=== PATIENT | male | born 1960 | race Caucasian/White ===

== ENCOUNTER 2016-11-15 09:38 | Inpatient (IN) | payer BC ==
[~2016-11-15] VITALS: Ht 175.3 cm; Wt 89.1 kg
--- NOTE | ~2016-11-15 | HEMODYNAMI ---
PATIENT:SHIRA MCINTOSH MEDICAL RECORD: [id number] : 62 [id number] ADMISSION DATE: 11/15/16 Generatedon:11/15/201612:49 Patient name: SHIRA MCINTOSH Patient #: [id number] : 1960 Date of study: 11/15/2016 Page: Of Hemodynamic Procedure Report Patient Data Patient Demographics Procedure consent was obtained First Name: SHIRA Gender: Male Last Name: ARNALDO : 1960 Middle Initial: A Age: 56 year(s) Patient #: [id number] Race: SSN: [id number] Additional ID: [id number] Contact details Address: [address] [place] [address] State: [place] City: [place] Zip code: [address] Admission Admission Data Admission Date: 11/15/2016 Admission Time: 9:38 Arrival Date: 11/15/2016 Arrival Time: 9:38 Admit Source: Other Insurance Payor: Private Room #: [id number].[id number] health insurance Weight (lbs.): 196.21 Weight (kg.): 89 Lab Results Lab Result Date: 11/15/2016 Lab Result Time: 0:00 Biochemistry Name Units Result Min Max BUN mg/dl 10 --(-*--)-- 7 18 Creatinine mg/dl 1 --(--*-)-- 0.6 1.3 CBC Name Units Result Min Max Hemoglobin g/dl 16.3 --(--*-)-- 13.5 17.5 Procedure Procedure Types Cath Procedure Diagnostic Procedure [facility] w/Coronaries FFR/IVUS Intra-Coronary IVUS Initial Miscellaneous Procedures Moderate Sedation up to 30 minutes Procedure Description Procedure Date Procedure Date: 11/15/2016 Procedure Start Time: 12:27 Procedure End Time: 12:45 Procedure Staff Name Function Mitchell Miranda MD Performing Physician [place] Proctor RT Scrub Meg Ibrahim RN Nurse Jesus Vang RT Damaged Freight Inspector Sarita Lui RT Monitor Indication Angina Procedure Data Cath Procedure Fluoroscopy Diagnostic fluoroscopy Total fluoroscopy Time: 4.1 time: 4.1 min min Diagnostic fluoroscopy Total fluoroscopy dose: 819 dose: 819 mGy mGy Contrast Material Contrast Material Type Amount (ml) Isovue 370 75 Entry Location Entry Primary Successful Side Size Upsize Upsize Entry Closure Succes sful Closure Location (Fr) 1 (Fr) 2 (Fr) Remarks Device Remarks Femoral Right 5 Fr 6 Fr Vascade artery Short Closure System Estimated blood loss: 5 ml Procedure Complications No complications Procedure Medications Medication Administration Route Dosage Oxygen NC 2 l/min Heparin Flush Bag added to field 2 bags (1000units/500ml NS) Lidocaine 2% added to field 20 Benadryl I.V. 50 mg Versed I.V. 1 mg Fentanyl I.V. 50 mcg Versed I.V. 1 mg Fentanyl I.V. 50 mcg Versed I.V. 1 mg Versed I.V. 1 mg Fentanyl I.V. 50 mcg Fentanyl I.V. 50 mcg Hemodynamics Rest HGB: 16.3 (g/dl) Heart Rate: 97 (bpm) Pressure Samples Time Site Value (mmHg) Purpose Heart Use Rate(bpm) 12:29 LV 152/57,59 Snapshot 97 Snapshots Pre Cath Intra NCS Post Cath Vital Signs Time Heart Resp SPO2 NIBP (mmHg) Rhythm Pain Sedation Rate (ipm) (%) Status Level (bpm) 12:07:20 92 16 98 145/96(116) NSR 3 (11) , 10(A) Tolerable 12:11:34 94 21 98 140/93(117) NSR 3 (11) , 10(A) Tolerable 12:15:50 91 17 99 142/91(115) NSR 3 (11) , 10(A) Tolerable 12:20:06 95 15 99 128/92(103) NSR 3 (11) , 10(A) Tolerable 12:24:18 97 18 97 132/87(115) NSR 3 (11) , 10(A) Tolerable 12:28:32 93 13 97 142/84(119) NSR 3 (11) , 10(A) Tolerable 12:32:50 102 19 95 149/82(111) NSR 3 (11) , 9(A) Tolerable 12:37:10 103 17 95 145/93(120) NSR 3 (11) , 9(A) Tolerable 12:41:22 104 15 95 143/91(104) NSR 3 (11) , 9(A) Tolerable 12:45:34 100 20 96 144/89(114) NSR 3 (11) , 10(A) Tolerable Medications Time Medication Route Dose Verified Delivered Reason Notes Effe ctiveness by by 12:10:17 Oxygen NC 2 Mitchell Meg Per l/min Ruben Ibrahim RN physician 12:10:24 Heparin Flush added 2 Mitchell Mitchell used for Bag to bags Ruben Miranda MD procedure (1000units/500ml field NS) 12:10:31 Lidocaine 2% added 20ml Mitchell Mitchell for local to vial Ruben Miranda MD anesthetic field 12:10:37 Benadryl I.V. 50 mg Mitchell Meg Per Ruben Ibrahim RN physician 12:21:17 Versed I.V. 1 mg Mitchell Meg for Ruben Ibrahim RN sedation 12:21:21 Fentanyl I.V. 50 Mitchell Meg for mcg Ruben Ibrahim RN sedation 12:24:44 Fentanyl I.V. 50 Mitchell Meg for mcg Ruben Ibrahim RN sedation 12:24:51 Versed I.V. 1 mg Mitchell Meg for Ruben Ibrahim RN sedation 12:26:39 Versed I.V. 1 mg Mitchell Meg for Ruebn Ibrahim RN sedation 12:26:57 Fentanyl I.V. 50 Mitchell Meg for mcg Ruben Ibrahim RN sedation 12:29:49 Versed I.V. 1 mg Mitchell Meg for Ruben Ibrahim RN sedation 12:29:57 Fentanyl I.V. 50 Mitchell Meg for mcg Ruben Ibrahim RN sedation Procedure Log Time Note 11:52:09 Informed consent obtained and on chart 11:52:15 Diagnostic Cath Status : Elective 11:53:03 Indication : Angina 11:53:09 Jesus Vang RT(R) sent for patient. Start room use. 11:53:10 Time tracking: Regular hours 11:53:14 Plan of Care:Hemodynamics will remain stable., Cardiac rhythm will remain stable., Comfort level will be maintained., Respiratory function will remain adequate., Patient/ family verbilizes understanding of procedure., Procedure tolerated without complication., Recovers from procedure without complications.. 12:01:44 Patient received from Med II to CCL 1 Alert and oriented. Tansferred to table in Supine position. 12:01:45 Warm blankets applied, and gerardo hugger turned on for patient comfort. 12:01:46 Correct patient and procedure confirmed by team. 12:01:47 ECG and BP/O2 sat monitors applied to patient. 12:06:15 Vital chart was started 12:06:21 Baseline sample Acquired. 12:06:25 Rhythm: sinus rhythm 12:06:27 Full Disclosure recording started 12:06:37 H&P Date Dictated: 11/15/2016 Within 30 days and on chart., H&P Addendum completed by physician on day of procedure. (MUST COMPLETE FOR ALL OUTPATIENTS). 12:06:38 Pre-procedure instructions explained to patient. 12:06:39 Pre-op teaching completed and patient verbalized understanding. 12:06:40 Family in waiting room. 12:06:41 Patient NPO since Midnight. 12:06:43 Is the patient allergic to Iodine/contrast media? No. 12:06:44 Is patient on blood thinner?No 12:06:48 ACC The patient was administered the following blood thiners within the last 24 hours: None 12:06:51 Patient diabetic? No. 12:06:54 Previous problem with sedation/anesthesia? No ? 12:06:55 Snore? Yes 12:06:56 Sleep apnea? Yes 12:06:57 Deviated septum? No 12:06:58 Opens mouth fully? Yes 12:06:58 Sticks out tongue? Yes 12:07:00 Airway obstruction? No ? 12:07:04 Dentures? No ? 12:07:07 Pre procedure: right dorsailis pedis pulse 1+ Palpable, but thready & weak; easily obliterated 12:07:57 Unable to go radial due to IV in right wrist. 12:08:03 Patient pain scale 4/10 Physician notified.. 12:08:08 IV patent on arrival in right wrist with 0.9% NaCl at O. 12:08:12 Lab results completed and on chart. 12:08:15 Right groin area was prepped with chlora-prep and draped in sterile fashion 12:08:16 Alarms reviewed by R. N. 12:08:16 Sharps counted by scrub and verified by R.N. 12::31 Use device set Femoral Dx 12:08:41 Tegaderm 4 x 4 opened to sterile field. 12:08:42 Acist Hand Control opened to sterile field. 12:08:42 Acist Manifold opened to sterile field. 12:08:44 Acist Syringe opened to sterile field. 12:08:44 Bag Decanter opened to sterile field. 12:08:44 Cardinal Cath Pack opened to sterile field. 12:08:45 Terumo 5Fr Milo Sheath opened to sterile field. 12:08:45 St Saeid 260cm J .035 wire opened to sterile field. 12:08:46 Cordis Infinity 5Fr Multipack catheter opened to sterile field. 12:10:17 Oxygen 2 l/min NC was given by Meg Ibrahim RN; Per physician; 12:10:24 Heparin Flush Bag (1000units/500ml NS) 2 bags added to field was given by Mitchell Miranda MD; used for procedure; 12::31 Lidocaine 2% 20ml vial added to field was given by Mitchell Miranda MD; for local anesthetic; 12:10:37 Benadryl 50 mg I.V. was given by Meg Ibrahim RN; Per physician; 12:12:11 Patient Weight : 89 lbs 12:12:14 Admit Source: Other 12:12:32 Arrival Date: 11/15/2016 9:38:00 AM 12:12:40 Insurance Payor : Private health insurance 12:13:24 Lab Result : Hemoglobin 16.3 g/dl 12::24 Lab Result : Creatinine 1 mg/dl 12:13:24 Lab Result : BUN 10 mg/dl 12:19:30 Physician arrived 12::30 --------ALL STOP TIME OUT------ 12::31 Final Timeout: patient, procedure, and site verified with staff and physician. All members of the team are in agreement. 12:19:37 Right groin site verified by team. 12:19:40 Physical assessment completed. ASA score P 2 - A patient with mild systemic disease as per Mitchell Miranda MD. 12:19:43 Sedation plan: IV Moderate Sedation Versed, Fentanyl 12::17 Versed 1 mg I.V. was given by Meg Ibrahim RN; for sedation; 12:: Fentanyl 50 mcg I.V. was given by Meg Ibrahim RN; for sedation; 12:24:44 Fentanyl 50 mcg I.V. was given by Meg Ibrahim RN; for sedation; 12::51 Versed 1 mg I.V. was given by Meg Ibrahim RN; for sedation; 12::39 Versed 1 mg I.V. was given by Meg Ibrahim RN; for sedation; 12::57 Fentanyl 50 mcg I.V. was given by Meg Ibrahim RN; for sedation; 12::29 Local anesthetic to right femoral artery with Lidocaine 2% by Mitchell Miranda MD.INITIAL ACCESS ONLY 12:28:28 A 5 Fr sheath was inserted into the Right Femoral artery 12::05 5 Fr pigtail guide catheter was inserted over the wire 12:: LV hemodynamics recorded. 12::32 LV gram done using SPARROW 12::35 Injector settings: Ml/sec: 5, Volume: 15, 12::41 EF : 50 % 12::43 Catheter removed. 12::49 Versed 1 mg I.V. was given by Meg Ibrahim RN; for sedation; 12::51 5 Fr jl 4 guide catheter was inserted over the wire 12::57 Fentanyl 50 mcg I.V. was given by Meg Ibrahim RN; for sedation; 12::07 LCA angiography performed. 12:31:11 Injector settings: Ml/sec: 3, Volume: 6, 12:32:02 Terumo 6Fr Milo Sheath opened to sterile field. 12:32:02 Garcia Whisper J 300cm 0.014 guide wire opened to sterile field. 12:32:03 [email or web address] BasixCompak Inflation Kit opened to sterile field. 12:32:11 Catheter removed. 12:32:19 5 Fr 3drc guide catheter was inserted over the wire 12:33:23 RCA angiography performed. 12:33:27 Injector settings: Ml/sec: 3, Volume: 6, 12:33:40 Catheter removed. 12:33:49 [place] IVUS Catheter opened to sterile field. 12:34:19 Cordis 6FR XBLAD 3.5 guide catheter opened to sterile field. 12:34:27 Sheath upsized to a 6 Fr Short. 12:34:37 6 Fr xblad 3.5 guide catheter was inserted over the wire 12:35:31 Guide Catheter removed. unable to cannulate vessel. 12:35:43 Cordis 6FR XBLAD 4.0 guide catheter opened to sterile field. 12:36:15 6 Fr xblad 4 guide catheter was inserted over the wire 12:36:39 whisper wire advanced. 12:36:41 Wire advanced across lesion. 12:38:37 IVUS catheter advanced over wire. 12:40:51 IVUS pass to LAD lesion performed. 12:40:52 IVUS catheter removed over wire. 12:41:21 Vascade 6/7 Fr Closure Device opened to sterile field. 12:41:28 Wire removed. 12:41:28 Guide catheter removed. 12:41:36 Sheath removed intact; hemostasis achieved with Vascade Closure System to the Right Femoral artery. 12:41:58 Procedure ended.(Physican Out) 12:43:03 Procedure type changed to Cath procedure, Diagnostic procedure, LHC, C w/Coronaries, FFR/IVUS, Intra-Coronary IVUS Initial, Miscellaneous Procedures, Moderate Sedation up to 30 minutes 12:44:48 Procedure and supply charges have been captured, reviewed, submitted and are correct. 12:44:53 Procedure Complication : No complications 12:45:00 Fluoroscopy time 04.10 minutes. 12:45:05 Fluoroscopy dose: 819 mGy 12:45:05 Flurop Dose total: 819 12:45:18 Contrast amount:Isovue 370 75ml. 12:45:20 Sharps counted by scrub and verified by R.N. 12:45:21 Insertion/operative site no bleeding no hematoma. 12:45:23 Post-op/insertion site Right Femoral artery dressed using a 4 x 4 and Tegaderm. 12:45:27 Post right femoral artery:stable 12:45:28 Post Procedure Pulses reassessed and unchanged 12:45:34 Post procedure rhythm: unchanged. 12:45:36 Estimated blood loss: 5 ml 12:45:38 Post procedure instruction explained to patient.Patient verbalizes understanding. 12:45:38 Patient needs reinforcement of post procedure teaching. 12:45:39 Vital chart was stopped 12:45:40 See physician's report for complete and final results. 12:45:42 Report given to Med II. 12:45:44 Patient transfered to Med II with Stretcher. 12:45:48 Procedure ended. 12:45:48 Full Disclosure recording stopped 12:45:55 End room use (Document Last) Device Usage Item Name Manufacture Quantity Catalog Hospital Part Current Minima l Lot# / Number Charge Number Stock Stock Serial# Code Tegaderm 4 1 [id number] 448148 248535 [id number] 5 x 4 Acist Hand Acist 1 89670 758352 214877 862761 5 Control Medical Systems Inc Acist Acist 1 88807 189951 902198 093283 5 Manifold Medical Systems Inc Acist Acist 1 61552 912425 963304 223086 20 Syringe Medical Systems Inc Bag Microtek 1 2002S 691552 15168 284027 5 Decanter Medical Inc. Cardinal Cardinal [address] 122294 27274 447568 5 Cath Pack Health Terumo 5Fr Terumo 1 [id number] 136951 467085 302641 [address] Saeid St Saeid 1 941953 059031 137553 610087 30 260cm J .035 wire Cordis Cardinal 1 [id number] 420759 88053 431477 30 Infinity Health 5Fr Multipack catheter Terumo 6Fr Terumo 1 MVN695 472142 981726 260131 40 Milo Sheath Garcia Garcia 1 [id number] 788807 790578 416106 5 Whisper J Vascular 300cm 0.014 guide wire Merit Merit 1 [id number] 553606 394429 037928 15 [employer] Medical Inflation Kit [place] 1 [id number] 338746 773792 216513 8 [place] IVUS Catheter Cordis 6FR Cardinal 1 [id number] 429859 096810 701746 10 XBLAD 3.5 Health guide catheter Cordis 6FR Cardinal 1 [id number] 708486 375076 952329 3 XBLAD 4.0 Health guide catheter Vascade 6/7 Cardiva 1 [id number] 688065 797973 616458 5 Fr Closure Medical, Device Inc. Signature Audit [place] Stage Time Signature Unsigned Intra-Procedure 11/15/2016 Sarita Lui 12:49:47 PM RT(R) Signatures Monitor : Sarita Lui RT Signature : Date : Time : [id number] [place] [address]
--- NOTE | 2016-11-15 09:52 | NUR ---
TRANSFER FROM ADMISSIONS BY W/C. OREINTED TO ROOM. CALL LIGHT IN REACH. WILL CONT. PLAN OF CARE.
[2016-11-15 10:13] VITALS: BP 148/98; Ht 175.3 cm; Wt 89.1 kg
[2016-11-15] MEDS ORDERED: NORVASC5 MG PO (10:32)
[2016-11-15] MEDS ORDERED: LIPITOR40 MG PO (10:33)
[2016-11-15] MEDS ORDERED: EFFEXOR XR75 MG PO (10:34)
[2016-11-15 10:46] LABS: BASOPHILS 0.3 % (0.0-2.0); EOSINOPHILS 0.5 % (0-7); HEMATOCRIT 47.4 % (42.0-54.0); HEMOGLOBIN 16.3 g/dL (13.5-17.5); IMMATURE GRANULOCYTES 0.3 % (0-5); LYMPHOCYTES 22.2 % (15-50); MCH 32.2 pg (26.0-34.0); MCHC 34.4 g/dL (31.0-37.0); MCV 93.7 fL (80.0-100.0); MEAN PLATELET VOLUME 9.7 fL (7.4-10.4); MONOCYTES 10.6 % (2-11); NEUTROPHILS 66.1 % (40-80); PLATELET COUNT 182 10x3/uL (130-400); RBC 5.06 10x6/uL (4.20-6.10); RDW 13.2 % (11.5-14.5); WBC 7.3 10x3/uL (4.8-10.8)
--- NOTE | 2016-11-15 11:01 | NUR ---
IV STARTED TO RITH HAND WITH 22 GAUGE CATH AND FLUSHED WITH NS. MORPHINE 2 MG GIVEN FOR C/P NOT RELIEVED BY ALEJANDRINA. B/P DROPPED TO 92/62. WILL CONT. TO MONITOR.
[2016-11-15 11:10] LABS: CALC OSMOLALITY 267 mosm/kg (275-300); CALCIUM 9.3 mg/dL (8.5-10.1); CARBON DIOXIDE 26.1 mmol/L (21.0-32.0); CHLORIDE - SERUM 101 mmol/L (98-107); CREATINE KINASE 168 UL (21-232); GLUCOSE 113 mg/dL (74-106); POTASSIUM - SERUM 3.6 mmol/L (3.5-5.1); SODIUM 134 mmol/L (136-145); TROPONIN-I < 0.017 ng/mL (0.000-0.060); UREA NITROGEN 10 mg/dL (7-18); eGFR NON AFRICAN AMERICAN 82 mL/min (90-120)
[2016-11-15 11:50] VITALS: BP 92/62
--- NOTE | 2016-11-15 13:00 | NUR ---
BACK FROM GLOVE SEWER. VWS WNL. RIGHT GROIN STABLE WITHOUT BLEEDING OR HEMATOMA NOTED. WILL MONITOR.
--- NOTE | 2016-11-15 15:00 | NUR ---
BED REST UP. GROIN STABLE.
[2016-11-15 15:28] VITALS: BP 136/93
--- NOTE | 2016-11-15 15:45 | NUR ---
02 SATS 92% ON RA AFTER AMBULATING. STATES SOB AND C/P ALOT BETTER. GROIN STABLE.
--- NOTE | 2016-11-15 16:05 | NUR ---
IV AND TELEMTRY DCD. DC PLANS GIVEN. UNDERSTANDING VOICED. ESCORTED TO CAR BY W/C.
--- NOTE | 2016-11-17 11:12 | CN ---
PATIENT NAME:SHIRA MCINTOSH MEDICAL RECORD: [id number] : 62 LOCATION:. D.2118 ADMIT DATE: 11/15/16 ACCOUNT: [id number] CONSULTING PHYSICIAN: SARAY AFYE MD REFERRING PHYSICIAN: ALISSA MCKAY MD DATE OF CONSULTATION: 11/15/2016 Cardiology Consultation DIAGNOSES: 1. Chest pain compatible with angina. 2. Abnormal electrocardiogram. 3. Hypertension. 4. Hyperlipidemia. HISTORY OF PRESENT ILLNESS: This is a gentleman with no previous cardiac history, no previous cardiac workup, who presents with anginal symptomatology all night, started last night at approximately 9:00, he continues to have chest pain. His EKG has T-wave inversions inferiorly. His troponin is normal. PHYSICAL EXAMINATION: GENERAL APPEARANCE: Well-nourished, well-developed, appears stated age. Level of distress, comfortable. PSYCHIATRIC: Mental status, alert, normal affect. Orientation, oriented to time, place and person. EYES: Lids and conjunctiva, noninjected. No discharge, no pallor. ENT: Lips, teeth, gums, normal dentition. Oropharynx, no cyanosis, no pallor. NECK: Carotid arteries, bilateral normal upstroke, no bruits, no thrills. JUGULAR VEINS: No jugular venous pressure or distention. CERVICAL LYMPH NODES: Nontender, nonenlarged. THYROID: Not enlarged. Nontender. No nodules. LUNGS: Respiratory effort, unlabored. CHEST: Normal curvature. No thoracic deformity. No chest wall tenderness. Percussion, resonant. Auscultation, clear. No wheezes, no rales, no rhonchi. CARDIOVASCULAR: Precordial exam, nondisplaced. No heaves or pericardial thrills. Rate and rhythm, regular. Heart sounds, normal S1, normal S2. No S3, no gallop, no rub. Systolic murmur, not heard. Diastolic murmur, not heard. EXTREMITIES: No cyanosis, no edema. Peripheral pulses, full and equal in all extremities, except as noted. No bruits appreciated. ABDOMEN: Soft, nondistended. Normal aorta. No bruit. Nontender. No masses. Liver, nontender, no hepatomegaly. Spleen, nontender, no splenomegaly. MUSCULOSKELETAL: No joint tenderness. No joint swelling. No erythema. NEUROLOGICAL: Normal gait, normal strength, normal tone. SKIN: Warm and dry. OVERALL IMPRESSION: Chest pain compatible with angina with abnormal ECG and a rapidly progressive unstable fashion, most likely is hemodynamically significant coronary artery disease. We will proceed with coronary angiography. Further care depends upon findings of the angiography. TRANSINT:[id number] Voice Confirmation ID: [id number] DOCUMENT ID: [id number] CONSULT REPORT [id number] SHIRA MCINTOSH, SARAY DOMINGUEZ at 1112 CC: [id number] DICTATION DATE: 11/15/16 1141 LINE SERVICE TECHNICIAN: 11/15/16 1550 DIS IN 11/15/16 [facility] [address] [place] [address]
--- NOTE | 2016-11-17 11:12 | OP ---
PATIENT NAME: SHIRA MCINTOSH MEDICAL RECORD: [id number] :62 LOCATION:D.M2 D.2118 ADMISSION DATE:11/15/16 SURGEON: SARAY FAYE MD DATE OF OPERATION: 11/15/2016 PROCEDURES: 1. Left heart catheterization. 2. Selective coronary angiography. 3. Left ventriculogram. INDICATION: 1. Chest pain compatible with angina. 2. Intravascular ultrasound of the LAD. PROCEDURE IN DETAIL: After informed consent was obtained and after a detailed explanation of the risks, benefits as well as alternative therapies, the patient elected to proceed with angiogram and heart catheterization. The right femoral area was prepped and draped in normal sterile fashion. Right femoral artery was cannulated via modified Seldinger technique with placement of 6-Korean sheath. All catheters exchanged through this sheath. FINDINGS: Left ventriculogram was performed in the standard 30-degree SPARROW view, reveals good cardiac wall motion throughout all segments. Overall ejection fraction 55% to 60%. SELECTIVE CORONARY ANGIOGRAPHY: 1. Left main is with no significant angiographic disease. 2. Left circumflex has no significant angiographic disease. 3. Right coronary has no significant angiographic disease. 4. The left anterior descending has hazy irregularities in the mid vessel; however, intravascular ultrasound revealed that this is no greater than 20%. OVERALL IMPRESSION: Minimal coronary artery disease is present. No flow-limiting stenosis. Chest pain is noncardiac in etiology. No other cardiac workup needs to be ascertained at this point. TRANSINT:[id number] Voice Confirmation ID: [id number] DOCUMENT ID: [id number] SARAY FAYE MD at 1112 CC: ALISSA MCKAY MD [id number] DICTATION DATE: 11/15/16 1244 CONFLICT RESOLUTION PROFESSIONAL: 11/15/16 1624 DIS IN 11/15/16 [address] [place] [address]
--- NOTE | 2016-11-28 17:39 | HP ---
PATIENT: SHIRA MCINTOSH MEDICAL RECORD: [id number] ACCOUNT: [id number] LOCATION:[address] : 62 ADMISSION DATE: 11/15/16 HISTORY AND PHYSICAL EXAMINATION DATE OF ADMISSION: 11/15/2016 CHIEF COMPLAINT: Substernal chest pain, shortness of breath. HISTORY OF PRESENT ILLNESS: The patient is a 56-year-old gentleman, who was in normal state of health until sometime yesterday when he developed shortness of breath, and also a pressure in his chest. The patient states he feels as if a massive amount of weight is on his chest. The patient has had some diaphoresis as well as shortness of breath. No radiation of pain. PAST MEDICAL HISTORY: His past history is significant that he has had a history of having hyperlipidemia. He has had hypertension. He has had some erectile dysfunction in the past. The patient has had no surgeries. He does have a history of sleep apnea. FAMILY HISTORY: Mother had history of diabetes mellitus as well as malignant neoplasm, type unknown, and had hypertension. SOCIAL HISTORY: The patient is 4 years college educated. He is and a father of 2. Currently, works at [employer]. He had been a 1 pack per day smoker, quit in 2009. He denies any ethanol use or abuse. ALLERGIES: BIAXIN, OMNICEF, AND TRILIPIX. MEDICATIONS: His medications currently include amlodipine 5 mg, 1 p.o. q.h.s. and Lipitor 40 mg p.o. q. day. Also, the patient had been on testosterone injections in the past. REVIEW OF SYSTEMS: CONSTITUTIONAL: He denies any headaches, seizures, or syncope. Denies change in visual or auditory acuity. PULMONARY: The patient does report having pain with deep inspiration. He has had no sputum production. No hemoptysis. CARDIOVASCULAR: As stated above. GENITOURINARY: No urgency, frequency, or dysuria. PHYSICAL EXAMINATION: GENERAL: The patient is alert and oriented times 3. He is accompanied by his . VITAL SIGNS: Temperature 99, respirations 20, his pulse is 92, his blood pressure is 132/82. His weight is 196. HEENT: Head is normocephalic. No lesions. Ears: TMs clear. Eyes: Pupils equal, round, reactive to light. His extraocular movements intact. Nasal cavity, oral cavity, oropharynx clear. NECK: Supple. There is no adenopathy. HEART: Has regular rhythm. No murmurs, gallops, or rubs. LUNGS: Clear. ABDOMEN: Soft. Bowel sounds positive. He does have some costosternal tenderness. He does have some minimal midepigastric tenderness. HISTORY AND PHYSICAL [id number] SHIRA MCINTOSH DIAGNOSTIC DATA: Chest x-ray today showing possible left lower lobe infiltrate. His EKG showed sinus rhythm, rate is 100, no ST-T wave changes. ASSESSMENT: 1. Acute onset of substernal chest pain, rule out angina. 2. History of hyperlipidemia, hypertension, and history of smoking. PLAN: The patient is admitted. Cardiology consultation will be obtained. He will have cardiac enzymes performed. We will continue to evaluate. TRANSINT:[id number] Voice Confirmation ID: [id number] DOCUMENT ID: [id number] ALISSA MCKAY MD at 1739 CC: [id number] DICTATION DATE: 11/15/16 09 EXTERMINATION SUPERVISOR: 11/15/16 1011 DIS IN 11/15/16 [facility] [address] [place] [id number]
--- NOTE | 2017-02-11 11:23 | DS ---
PATIENT:SHIRA MCINTOSH :62 MEDICAL RECORD: [id number] DISCHARGE SUMMARY ADMISSION DATE: 11/15/16 DISCHARGE DATE: 11/15/16 DATE OF ADMISSION: 11/15/2016 DATE OF DISCHARGE: 11/15/2016 CONDITION ON DISCHARGE: Improved. ADMITTING DIAGNOSES: Substernal chest pain, possible angina, history of hyperlipidemia, hypertension and history of smoking. DISCHARGE DIAGNOSES: Chest pain, unspecified, hypertension, hyperlipidemia and history of smoking. HOSPITAL COURSE: This patient is a 56-year-old gentleman, who presented to the office stating he had developed substernal chest pain on the day prior to his admission. He had had a pressure in the chest. He states that he felt if there was a massive amount of weight on his chest. It was felt the patient's history was significant, he should be admitted. PHYSICAL EXAMINATION: GENERAL: He was alert and oriented times 3. VITAL SIGNS: Temperature 99, respirations 20, his pulse was 92 and his blood pressure 132/82. His weight was 196. HEENT: Unremarkable. NECK: Supple. There is no adenopathy. HEART: Had a regular rate and rhythm without murmurs, gallops or rubs. LUNGS: Clear. DIAGNOSTIC DATA: Chest x-ray showed no cardiomegaly, no active infiltrates. EKG showed normal sinus rhythm, rate is 100, nonspecific ST-T wave changes. The patient was admitted and was seen in consultation by Dr. Miranda, who felt the patient's chest pain was compatible with angina, felt the patient would benefit from coronary arteriogram. The patient did undergo coronary arteriogram, which revealed left main having no significant angiographic disease, left circumflex without any significant disease, right coronary had no angiographic disease, left anterior descending has hazy irregularities in the mid portion, no greater than 20%. Overall, he had minimal arteriosclerotic heart disease. The patient was stable. He was therefore discharged. DISCHARGE MEDICATIONS: Included atorvastatin 40 mg once a day, aspirin 81 mg once a day and Norvasc 5 mg once a day. DISCHARGE INSTRUCTION: The patient was advised to stop smoking. ACTIVITIES: Ad dax. FOLLOWUP: He would follow up with me in approximately 1 week. 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
== END 2016-11-15 16:08 | disposition home or self-care (01) | DRG 287 ==
LOC: D.M2 09:38
PROVIDERS: Internal Medicine Interventional Cardiology; ADMIT Family Medicine
PROC: B2151ZZ Fluoroscopy of Left Heart using Low Osmolar Contrast (ICD-10-PCS; 2016-11-15)
PROC: 4A023N7 Measurement of Cardiac Sampling and Pressure, Left Heart, Percutaneous Approach (ICD-10-PCS; 2016-11-15)
PROC: B240ZZ3 Ultrasonography of Single Coronary Artery, Intravascular (ICD-10-PCS; 2016-11-15)
PROC: B2111ZZ Fluoroscopy of Multiple Coronary Arteries using Low Osmolar Contrast (ICD-10-PCS; principal; 2016-11-15 13:00)
DX: R07.89 Other chest pain (principal); I25.10 Atherosclerotic heart disease of native coronary artery without angina pectoris; I10 Essential (primary) hypertension; E78.5 Hyperlipidemia, unspecified; Z87.891 Personal history of nicotine dependence; R94.31 Abnormal electrocardiogram [ECG] [EKG]

== ENCOUNTER 2017-01-07 14:57 | Emergency (ER) | payer BC ==
[2016-11-15 10:13] VITALS: BMI 29.0
[~2017-01-07 14:57] MED LIST: EFFEXOR XR75 MG PO; LIPITOR40 MG PO; NORVASC5 MG PO
[2017-01-07 15:34] LABS: BASOPHILS 0.1 % (0.0-2.0); EOSINOPHILS 0.2 % (0-7); HEMATOCRIT 52.1 % (42.0-54.0); HEMOGLOBIN 18.1 g/dL (13.5-17.5); IMMATURE GRANULOCYTES 0.3 % (0-5); LYMPHOCYTES 10.3 % (15-50); MCH 32.4 pg (26.0-34.0); MCHC 34.7 g/dL (31.0-37.0); MCV 93.2 fL (80.0-100.0); MEAN PLATELET VOLUME 9.4 fL (7.4-10.4); MONOCYTES 5.3 % (2-11); NEUTROPHILS 83.8 % (40-80); PLATELET COUNT 211 10x3/uL (130-400); RBC 5.59 10x6/uL (4.20-6.10); RDW 13.2 % (11.5-14.5); WBC 10.9 10x3/uL (4.8-10.8)
[2017-01-07 15:50] LABS: ALKALINE PHOSPHATASE 82 U/L (46-116); ALT (SGPT) 46 U/L (10-68); BILIRUBIN - TOTAL 0.59 mg/dL (0.2-1.3); CALC OSMOLALITY 283 mosm/kg (275-300); CALCIUM 8.9 mg/dL (8.5-10.1); CARBON DIOXIDE 25.8 mmol/L (21.0-32.0); CHLORIDE - SERUM 104 mmol/L (98-107); GLUCOSE 147 mg/dL (74-106); POTASSIUM - SERUM 4.4 mmol/L (3.5-5.1); PROTEIN - SERUM 7.8 g/dL (6.4-8.2); SODIUM 140 mmol/L (136-145); UREA NITROGEN 17 mg/dL (7-18); eGFR NON AFRICAN AMERICAN 82 mL/min (90-120)
== END 2017-01-07 20:20 | disposition home or self-care (01) ==
LOC: D.ER 14:57
PROVIDERS: Emergency Medicine
DX: T67.5XXA Heat exhaustion, unspecified, initial encounter (principal); X58.XXXA Exposure to other specified factors, initial encounter; Y93.89 Activity, other specified; Y92.017 Garden or yard in single-family (private) house as the place of occurrence of the external cause; R53.1 Weakness; I10 Essential (primary) hypertension; E78.5 Hyperlipidemia, unspecified; F17.200 Nicotine dependence, unspecified, uncomplicated